=== PATIENT | male | born 1965 ===

== ENCOUNTER 2023-05-18 05:16 | Day surgery (SDC) | payer OTHER ==
[2023-05-15 10:01] LABS: HEMATOCRIT 41.5 % (39.0-48.0); HEMOGLOBIN 14.3 g/dL (13-16.00); MEAN CELL VOLUME 87.4 fL (80.0-100.00); MEAN CORPUSCULAR HEMOGLOBIN 30.2 pg (27.00-32.0); MEAN CORPUSCULAR HGB CONC 34.5 g/dl (32.0-36.0); PLATELET COUNT 383 K/uL (150-450); RED BLOOD COUNT 4.74 M/uL (4.00-6.00); RED CELL DISTRIBUTION WIDTH 14.2 % (11.5-14.5)
[2023-05-15 10:12] LABS: PH,URINE 5.5 (5.0-8.0); URINE APPEARANCE Clear; URINE BILIRRUBIN Negative (NEGATIVE); URINE BLOOD Negative; URINE COLOR Yellow; URINE GLUCOSE Negative (NEGATIVE); URINE LEUKOCYTE Negative; URINE NITRATE Negative; URINE PROTEIN Negative (NEGATIVE)
[2023-05-15 10:18] LABS: URINE BACTERIA 4.8 uL (0.0-1933); URINE EPITHELIAL CELLS 2.9 uL (0.0-38.8)
[2023-05-15 10:27] LABS: PARTIAL THROMBOPLASTIN TIME 25.9 SECONDS (22.0-34.0); PROTHROMBIN TIME 10.5 SECONDS (9.0-11.5)
[2023-05-15 10:40] LABS: CALCIUM 9.2 mg/dL (8.5-10.1); CREATININE SERUM 1.53 mg/dL (0.70-1.30); GFR 47.32; POTASSIUM 4.3 mEq/L (3.5-5.1)
[2023-05-15 11:14] LABS: URINE RBC 1.4 uL (0.0-20.8)
[~2023-05-18] VITALS: Ht 162.6 cm; Wt 90.7 kg
[~2023-05-18 05:16] MED LIST: AVAPRO300 MG PO; DURICEF; FENOFIBRIC ACI105 MG PO; NABUMETONE750 MG PO; NORVASC5 MG PO; PANADOL EXTRA500 MG PO
== END 2023-05-18 14:00 | disposition home or self-care (01) ==
LOC: CIR.AMB 05:16
PROVIDERS: ATTEND Urology
DX: C67.9 Malignant neoplasm of bladder, unspecified (principal); D41.4 Neoplasm of uncertain behavior of bladder; L92.8 Other granulomatous disorders of the skin and subcutaneous tissue; Z20.822 Contact with and (suspected) exposure to COVID-19; Z88.1 Allergy status to other antibiotic agents; I10 Essential (primary) hypertension; E78.5 Hyperlipidemia, unspecified